=== PATIENT | female | born 2000 | race African-American/Black ===

== ENCOUNTER 2021-06-25 17:13 | Emergency (ER) | payer SELFPAY ==
[2021-06-25 18:19] LABS: Bilirubin Neg (Negative); Blood, Urine 250 (Negative); Clarity Clear (Clear); Glucose, Urine (Dipstick) Normal (Negative); Ketone, Urine 5 mg/dL (Negative); Leukocyte 25 (Negative); Nitrite Negative (Negative); Protein, Urine (Dipstick) 15 mg/dl (Neg-Trace); Specific Gravity, Urine 1.015 (1.002-1.036)
[2021-06-25 18:23] LABS: Pregnancy Test - Urine (BHCG) Negative (Negative); Pregu Control Background? CLEAR/WHITE (CLR/WHITE); Pregu Control Bar Appear? YES (CONTROL BAR); Specific Gravity 1.015 (1.002-1.036)
[2021-06-25 18:33] LABS: Bacteria/HPF None Seen HPF (None Seen); Mucous/LPF Few LPF (<2+); RBC/HPF 0-3 HPF (0-3); Squamous Epithelial 0-3 HPF (0-3); WBC/HPF 0-3 HPF (0-3)
== END 2021-06-25 19:44 | disposition home or self-care (01) ==
LOC: CSHERS 17:13
DX: R10.9 Unspecified abdominal pain (principal); N93.9 Abnormal uterine and vaginal bleeding, unspecified
CPT/HCPCS: 81003; 81015; 81025; 99284

== ENCOUNTER 2021-10-28 07:58 | Emergency (ER) | payer SELFPAY | END 2021-10-28 09:15 | disposition home or self-care (01) | LOC: CSHERS 07:58 | DX: J02.9 Acute pharyngitis, unspecified (principal) | CPT/HCPCS: 87430; 87804; 99283 ==